=== PATIENT | male | born 1960 | race Caucasian/White ===

== ENCOUNTER → 2016-06-03 | Outpatient (CLI) | payer MEDICARE | LOC: US 06-02 14:30 | DX: N50.9 Disorder of male genital organs, unspecified (principal); N43.3 Hydrocele, unspecified | CPT/HCPCS: 76870 ==

== ENCOUNTER 2020-03-11 20:13 | Emergency (ER) | payer OTHER ==
[~2020-03-11 20:13] MED LIST: HYGROTON TAB 2525 MG PO
[2020-03-11 21:34] LABS: HEMOGLOBIN 16.1 gm/dl (14.0-17.5); RED BLOOD COUNT 5.53 M/UL (4.20-5.50); WHITE BLOOD COUNT 14.6 K/UL (4.5-11.0)
[2020-03-11 22:01] LABS: BUN/CREATININE RATIO 20 (0-10)
== END 2020-03-12 00:11 | disposition short-term general hospital (02) ==
LOC: ER1 20:13
PROVIDERS: Emergency Medicine
DX: I21.4 Non-ST elevation (NSTEMI) myocardial infarction (principal); I11.0 Hypertensive heart disease with heart failure; I50.9 Heart failure, unspecified; I48.91 Unspecified atrial fibrillation; E11.9 Type 2 diabetes mellitus without complications; Z79.01 Long term (current) use of anticoagulants; Z79.899 Other long term (current) drug therapy; Z20.822 Contact with and (suspected) exposure to COVID-19
CPT/HCPCS: 0240U; 36415; 80053; 81001; 82550; 82553; 83735; 83874; 83880; 84484; 85025; 93005; 96374; 99285; J1644

== ENCOUNTER → 2020-07-09 | Outpatient (CLI) | payer OTHER | LOC: US 16:00 | DX: R22.42 Localized swelling, mass and lump, left lower limb (principal) | CPT/HCPCS: 93971 ==